=== PATIENT | female | born 1965 | race Caucasian/White ===

== ENCOUNTER 2020-10-03 12:57 | Outpatient (CLI) | payer OTHER ==
--- NOTE | 2020-10-03 17:25 | XRAY Report ---
PROCEDURE: Ribs 2 View LT INDICATIONS: RIB PAIN, LEFT TECHNIQUE: 3 views of the left ribs were acquired. COMPARISON: None FINDINGS: Surgical changes and devices: Surgical clips noted in the left breast Bones and chest wall: No fractures or dislocations. No suspicious bony lesions. Overlying soft tis sues appear unremarkable. Lungs and pleura: The visualized lung appears clear. No pleural effusions or pneumothorax are visib le. IMPRESSION: No evidence of fracture or pneumothorax. Minimal left basilar pulmonary atelectasis Reviewed by: Gurpreet Villa MD on 10/03/2020 4:24 PM AKDT Approved by: Gurpreet Villa MD on 10/03/2020 4:24 PM AKDT Station ID: [id number]
== END 2020-10-03 23:59 | disposition home or self-care (01) ==
LOC: DI.N 12:57
PROVIDERS: ATTEND Family Medicine
DX: J98.11 Atelectasis (principal); R07.81 Pleurodynia

== ENCOUNTER 2020-11-24 11:45 | Outpatient (CLI) | payer OTHER ==
[2020-11-24 18:13] LABS: BASOPHILS % (AUTO) 0.3 %; EOSINOPHILS % (AUTO) 0.2 %; HCT - HEMATOCRIT 40.5 % (37.0-47.0); HGB - HEMOGLOBIN 12.7 g/dL (12.0-16.0); LYMPHOCYTES # (AUTO) 1.9 10^3/uL (1.5-3.5); LYMPHOCYTES % (AUTO) 32.3 %; MEAN CORPUSCULAR HEMOGLOBIN 28.1 pg (27.0-31.0); MEAN CORPUSCULAR HGB CONC 31.4 g/dL (32.0-36.0); MEAN CORPUSCULAR VOLUME 89.6 fL (81.0-99.0); MEAN PLATELET VOLUME 12.5 fL (7.9-10.8); MONOCYTES # (AUTO) 0.5 10^3/uL (0.0-1.0); NEUTROPHILS # (AUTO) 3.4 10^3/uL (1.5-6.6); PLT - PLATELET COUNT 268 10^3/uL (130-450); RED BLOOD COUNT 4.52 10^6/uL (4.20-5.40); RED CELL DISTRIBUTION WIDTH 13.3 % (12.0-15.0); WHITE BLOOD COUNT 5.7 x10^3/uL (4.8-10.8)
[2020-11-24 18:36] LABS: ALBUMIN 4.2 g/dL (3.2-5.5); ALBUMIN/GLOBULIN RATIO 1.4 (1.0-2.2); ALKALINE PHOSPHATASE 92 IU/L (42-121); ALT ALANINE AMINOTRANSFERASE 27 IU/L (10-60); AMYLASE 89 U/L (28-100); AST ASPARTATE AMINOTRANSFERASE 20 IU/L (10-42); BILIRUBIN,TOTAL 0.7 mg/dL (0.2-1.0); BUN - BLOOD UREA NITROGEN 16 mg/dL (6-20); CALCIUM 9.4 mg/dL (8.5-10.3); CARBON DIOXIDE - CO2 24 mmol/L (21-32); CHLORIDE 103 mmol/L (101-111); CHOL/HDL RATIO 3.2 (<4.4); CHOLESTEROL 161 mg/dL; CREATININE 0.7 mg/dL (0.4-1.0); GFR - MDRD 87 (>89); GLUCOSE 86 mg/dL (70-100); HDL CHOLESTEROL 50 mg/dL; LDL CHOLESTEROL,CALCULATED 101 mg/dL; POTASSIUM 3.7 mmol/L (3.5-5.0); SODIUM 137 mmol/L (135-145); TOTAL PROTEIN 7.2 g/dL (6.7-8.2); TRIGLYCERIDES 48 mg/dL; VLDL CHOLESTEROL 10 mg/dL
[2020-11-24 18:54] LABS: THYROID STIMULATING HORMONE 1.42 uIU/mL (0.34-5.60)
[2020-11-25 15:11] LABS: HEPATITIS C ANTIBODY NON-REACTIVE (NON-REACTIVE)
== END 2020-11-24 11:46 | disposition home or self-care (01) ==
LOC: LAB.N 11:45
PROVIDERS: ATTEND Registered Nurse
DX: Z00.00 Encounter for general adult medical examination without abnormal findings (principal); K57.92 Diverticulitis of intestine, part unspecified, without perforation or abscess without bleeding; Z85.3 Personal history of malignant neoplasm of breast; Z79.899 Other long term (current) drug therapy; R10.13 Epigastric pain; E55.9 Vitamin D deficiency, unspecified; E53.8 Deficiency of other specified B group vitamins
CPT/HCPCS: 36415; 80053; 80061; 82150; 82607; 83721; 84443; 85025; 86803

== ENCOUNTER 2020-11-29 07:21 | Outpatient (CLI) | payer OTHER ==
--- NOTE | 2020-11-29 17:10 | Ultrasound Report ---
PROCEDURE: Abdomen Complete INDICATIONS: THYROID NODULE, RIGHT FLANK PAIN, EPIGASTRIC DISCO TECHNIQUE: Real-time scanning was performed of the abdominal and retroperitoneal organs, with image documentatio n. COMPARISON: None. FINDINGS: Liver: Normal size. Increased in echogenicity. Coarsened echotexture. Gallbladder: Gallbladder is nondistended. No stones or sludge. No gallbladder wall thickening. No per icholecystic fluid. Negative sonographic Esposito sign. Biliary ducts: Intrahepatic bile ducts are non-dilated. Extrahepatic bile duct caliber measures 6 m m. Normal is 6-7 mm or less in diameter, or 10 mm or less post-cholecystectomy. Pancreas: Visualized portions of the pancreas are sonographically normal. Spleen: Spleen is normal in size and homogeneous in echotexture. 10.9 cm. Kidneys: Kidneys are normal in size and echotexture. Right kidney measures 11.9 cm long; left kidne y measures 11.5 cm long. No hydronephrosis or nephrolithiasis. No solid masses. Aorta: Visualized aorta is normal in caliber at less than 3 cm. Iliacs: Proximal common iliac arteries are normal in caliber at less than 2.5 cm. IVC: Intrahepatic inferior vena cava is patent. Miscellaneous: No free abdominal fluid. IMPRESSION: 1. Increased echogenicity of the hepatic parenchyma. This is most commonly seen in hepatic steatosis. Other forms of hepatocellular disease could have a similar appearance. 2. No acute cholecystitis. No gallstones. 3. No hydronephrosis. Reviewed by: Julian Roblero MD on 11/29/2020 4:08 PM CRESCENCIO Approved by: Julian Roblero MD on 11/29/2020 4:08 PM CRESCECNIO Station ID: [id number]
--- NOTE | 2020-11-29 17:13 | Ultrasound Report ---
PROCEDURE: Head or Neck Soft Tissue INDICATIONS: THYROID NODULE, RIGHT FLANK PAIN, EPIGASTRIC DISCO TECHNIQUE: Real-time scanning was performed of the thyroid gland, with image documentation. COMPARISON: None FINDINGS: Right: Thyroid lobe measures 4.4 x 2.1 x 1.6 cm, and is homogeneous in echotexture. Left: Thyroid lobe measures 4.1 x 1.2 x 0.9 cm, and is homogenous in echotexture. Isthmus: 0.2 cm thick. Nodule number: One Location: Right mid Size: 3.2 x 1.8 x 1.5 cm. Composition: Solid Echogenicity: Isoechoic Shape: wider than tall. Margins: Smooth Echogenic foci: Macrocalcification. Total points: 4 ACR TI-RADS category: TR 4, moderately suspicious IMPRESSION: Right mid thyroid nodule measuring 3.2 cm. TR 4, moderately suspicious. FNA is recommended. ACR TI-RADS definitions and recommendations: TI-RADS 1 (benign): 0 points. FNA not needed. TI-RADS 2 (not suspicious): 2 points. FNA not needed. TI-RADS 3 (mildly suspicious): 3 points. ? FNA if 2.5 cm or larger, follow up if 1.5 cm or larger (at 1, 3, and 5 years). TI-RADS 4 (moderately suspicious): 4-6 points. ? FNA if 1.5 cm or larger, follow up if 1 cm or larger (at 1, 2, 3, and 5 years). TI-RADS 5 (highly suspicious): 7 points or more. ? FNA if 1 cm or larger, follow up if 0.5 cm or larger (every year for 5 years). Reviewed by: Julian Roblero MD on 11/29/2020 4:12 PM CRESCENCIO Approved by: Julian Roblero MD on 11/29/2020 4:12 PM CRESCENCIO Station ID: [id number]
== END 2020-11-29 07:22 | disposition home or self-care (01) ==
LOC: DI 07:21
PROVIDERS: ATTEND Registered Nurse
DX: E04.1 Nontoxic single thyroid nodule (principal); R10.13 Epigastric pain; R10.9 Unspecified abdominal pain

== ENCOUNTER 2020-12-02 10:26 | Outpatient (CLI) | payer OTHER ==
[2020-12-02 18:15] LABS: AMYLASE 98 U/L (28-100); LIPASE 30 U/L (22-51)
== END 2020-12-02 10:27 | disposition home or self-care (01) ==
LOC: LAB.N 10:26
PROVIDERS: ATTEND Registered Nurse
DX: R10.13 Epigastric pain (principal); E55.9 Vitamin D deficiency, unspecified
CPT/HCPCS: 36415; 82150; 82306; 83690

== ENCOUNTER 2020-12-23 07:54 | Outpatient (CLI) | payer OTHER ==
--- NOTE | 2020-12-24 11:48 | Mammography Report ---
BILATERAL DIGITAL DIAGNOSTIC MAMMOGRAM 3D/2D: 12/23/2020 CLINICAL: Diffuse left breast pain. Scabbing on left nipple. Comparison is made to exams dated: 10/23/2019 mammogram, 06/21/2018 mammogram, 05/18/2017 mammogram, 017 mammogram, 04/29/2015 mammogram, and 06/07/2013 stereotactic biopsy - [facility]. Th ere are scattered fibroglandular elements in both breasts. No significant new masses, calcifications, or other findings are seen in either breast. Post surgical changes are redemonstrated in the left breast. IMPRESSION: INCOMPLETE: NEEDS ADDITIONAL IMAGING EVALUATION There is no abnormality seen in the left breast to correspond with the diffuse pain, however, clinica l followup is recommended. There is no abnormality seen in the left breast to correspond with the skin lesion in the sub-areolar depth, however, ultrasound is recommended. Ultrasound will be performed immediately following the current exam. This exam was interpreted at Station ID: [id number]. NOTE: For mammograms, a report in lay terms will be sent to the patient. Approximately 15% of breast malignancies will not be visualized mammographically. In the management of a palpable breast mass, a negative mammogram must not discourage biopsy of a clinically suspicious lesion. Electronically Signed By: Delfino Jean M.D. ddp/:12/23/2020 08:41:05 ACR BI-RADS Category 0: Incomplete 3340F PARENCHYMAL PATTERN: (A) - The breast(s) demonstrate(s) scattered fibroglandular densities. BI-RADS CATEGORY: (0) - 0 Ultrasound [id number] Immediate follow-up LATERALITY: (B)
--- NOTE | 2020-12-24 11:49 | Ultrasound Report ---
LIMITED ULTRASOUND OF LEFT BREAST: 12/23/2020 CLINICAL: Focal left breast pain, area of scabbing / skin issue. Comparison is made to exams dated: 12/23/2020 mammogram - [facility], 10/23/2019 mamm ogram, 06/21/2018 mammogram, 05/18/2017 mammogram, 04/20/2016 mammogram, and 04/29/2015 mammogram - [facility]. Real-time ultrasound of the left breast retroareolar was performed on the areas of interest. Goodman s isaac images of the real-time examination were reviewed. No discrete cystic or solid mass lesion identified in the area of the draining skin lesion. IMPRESSION: NEGATIVE There is no sonographic evidence of malignancy. There is no abnormality seen in the left breast to correspond with the skin lesion in the sub-areolar depth, however, clinical followup is recommended. A 1 year screening mammogram is recommended. This exam was interpreted at Station ID: [id number]. Electronically Signed By: Delfino Jean M.D. ddp/:12/23/2020 09:05:53 Ultrasound BI-RADS: 1 Negative BI-RADS CATEGORY: (1) - 1 RECOMMENDATION: (ANNUAL) - Recommend routine annual screening mammography. [id number] 1 year screening LATERALITY: (B)
== END 2020-12-23 07:55 | disposition home or self-care (01) ==
LOC: DI 07:54
PROVIDERS: ATTEND Registered Nurse
DX: N64.4 Mastodynia (principal)

== ENCOUNTER 2021-03-02 11:05 | Day surgery (SDC) | payer OTHER ==
[2021-03-02] MEDS ORDERED: LACTATED RINGERS 1,000 ML IV ONE ×2 (11:14→13:01)
--- NOTE | 2021-03-02 11:49 | ANESTHESIA ---
Pre-Anesthesia VS, & Labs - Diagnosis History of colon polyps - Procedure colonoscopy Vital Signs: Temp Pulse Resp BP Pulse Ox 36.6 C 73 16 140/76 H 99 03/02/21 11:13 03/02/21 11:13 03/02/21 11:13 03/02/21 11:13 03/02/21 11:13 Height: 5 ft 7 in Weight (kg): 93 kg Body Mass Index: 32.1 BMI Classification: Obese - NPO Last Fluid Intake: clear liquids 0900 - Is Patient ?: No Home Medications and Allergies Home Medications: Ambulatory Orders Cholecalciferol (Vitamin D3) [Vitamin D3] 1,250 mcg PO 03/01/21 Cyanocobalamin (Vitamin B-12) [Vitamin B-12] 1,000 mcg PO 03/01/21 Magnesium 250 mg PO 03/01/21 Melatonin 1 mg PO 03/01/21 Cholecalciferol (Vitamin D3) [Vitamin D3] 1,250 mcg PO 03/01/21 Cyanocobalamin (Vitamin B-12) [Vitamin B-12] 1,000 mcg PO 03/01/21 Magnesium 250 mg PO 03/01/21 Melatonin 1 mg PO 03/01/21 Allergies/Adverse Reactions: Allergies Allergy/AdvReac Type Severity Reaction Status Date / Time No Known Drug Allergies Allergy Verified 03/02/21 11:33 Anes History & Medical History - Anesthetic History Anesthesia Complications: reports: Post-Operative Nausea/Vomiting - Medical History Cardiovascular: reports: None Pulmonary: reports: None Gastrointestinal: reports: Colon polyps, Diverticulitis Urinary: reports: Other (treated for bladder cancer) Neuro: reports: None Musculoskeletal: reports: None Endocrine/Autoimmune: reports: None Blood Disorders: reports: None Smoking Status: Never smoker Psychosocial: reports: Depression History of Cancer?: Yes (s/p radiation for breast cancer, currently treating bladder ca) - Surgical History General: reports: Colonoscopy Eyes Ears Nose Throat (EENT): reports: Tonsil/Adenoidectomy Orthopedic: reports: Rotator cuff repair, Other Exam General: Alert, Oriented x3, Cooperative, No acute distress Dental: WNL Mouth Openin Fingerbreadth Neck Mobility: Normal Mallampati classification: II Thyromental Distance: 4-6 cm Mental/Cognitive Status: Alert/Oriented X3, Normal for patient Plan Anesthesia Type: Total IV Consent for Procedure(s) Verified and Reviewed: Yes Code Status: Attempt Resuscitation ASA classification: 2-Mild systemic disease Is this case an emergency?: No
[2021-03-02] MEDS ORDERED: MIDAZOLAM 2 MG/2 ML VIAL ONE ×2 (12:25→12:55)
[2021-03-02] MEDS ORDERED: PROPOFOL 500 MG/50 ML 500 MG/50 ML VIAL ONE (12:25)
[2021-03-02] MEDS ORDERED: fentaNYL 100 MCG/2 ML VIAL ONE (12:40)
--- NOTE | 2021-03-02 13:36 | ANESTHESIA POST OP EVALUATION ---
Anesthesia Post Eval - Post Anesthesia Eval Vitals: Last Vital Signs Temp 36.1 C L 03/02/21 13:01 Pulse 82 03/02/21 13:10 Resp 16 03/02/21 13:10 BP 116/79 03/02/21 13:10 Pulse Ox 100 03/02/21 13:10 CV Function Including HR & BP: Stable Pain Control: Satisfactory Nausea & Vomiting: Negative Mental Status: Baseline Respiratory Status: Airway Patent Hydration Status: Satisfactory Anesthesia Complications: None
[2021-03-02 13:37] VITALS: BP 117/83
== END 2021-03-02 11:06 | disposition home or self-care (01) ==
LOC: SDS 11:05
PROVIDERS: ATTEND Surgery
DX: Z12.11 Encounter for screening for malignant neoplasm of colon (principal); Z86.010 Personal history of colon polyps; K57.30 Diverticulosis of large intestine without perforation or abscess without bleeding; K64.4 Residual hemorrhoidal skin tags; K64.8 Other hemorrhoids; E66.9 Obesity, unspecified; Z68.32 Body mass index [BMI] 32.0-32.9, adult; Z85.3 Personal history of malignant neoplasm of breast; Z85.51 Personal history of malignant neoplasm of bladder
CPT/HCPCS: 45378; J7120

== ENCOUNTER 2021-07-28 13:59 | Outpatient (CLI) | payer OTHER ==
--- NOTE | 2021-07-28 14:33 | XRAY Report ---
PROCEDURE: Ankle 3 View RT INDICATIONS: R ANKLE PX TECHNIQUE: 4 views of the ankle were acquired. COMPARISON: None. FINDINGS: BONES: No acute, displaced fracture or dislocation. The ankle mortise is maintained on these nonstre ssed views. Plantar calcaneal enthesophyte. Minimal osteophytosis of the lateral malleolus. SOFT TISSUES: Diffuse edema. IMPRESSION: 1.No acute osseous abnormality. Reviewed by: Stewart De Oliveira MD on 07/28/2021 2:32 PM PDT Approved by: Stewart De Oliveira MD on 07/28/2021 2:32 PM PDT Station ID: [id number]
--- NOTE | 2021-07-28 14:34 | XRAY Report ---
PROCEDURE: Foot 2 View RT INDICATIONS: R FOOT PX TECHNIQUE: 2 views of the foot were acquired. COMPARISON: None. FINDINGS: BONES: No acute, displaced fracture or dislocation. Bipartite medial hallux sesamoid. SOFT TISSUES: No focal abnormality. IMPRESSION: 1.No acute osseous abnormality. Reviewed by: Stewart De Oliveira MD on 07/28/2021 2:33 PM PDT Approved by: Stewart De Oliveira MD on 07/28/2021 2:33 PM PDT Station ID: [id number]
== END 2021-07-28 23:59 | disposition home or self-care (01) ==
LOC: DI.N 13:59
PROVIDERS: ATTEND Family Medicine
DX: S93.491D Sprain of other ligament of right ankle, subsequent encounter (principal); R93.6 Abnormal findings on diagnostic imaging of limbs; M79.671 Pain in right foot

== ENCOUNTER 2022-03-16 08:00 | Outpatient (CLI) | payer OTHER | END 2022-03-16 23:59 | disposition home or self-care (01) | LOC: LAB.N 08:00 | PROVIDERS: ATTEND Family Medicine | DX: N39.0 Urinary tract infection, site not specified (principal) | CPT/HCPCS: 87086 ==